=== PATIENT | male | born 1970 | race Native Hawaiian/Other Pacific Islander ===

== ENCOUNTER 2016-10-27 08:48 | Inpatient (IN) | payer BC ==
[~2016-10-27] VITALS: Ht 182.9 cm; Wt 83.9 kg
--- NOTE | 2016-10-27 08:56 | NUR ---
Dr Bangura at bedside for MSE.
[2016-10-27] MEDS ORDERED: ALLO100T56 PO (09:01)
[2016-10-27] MEDS ORDERED: LISI10TA5 PO (09:01)
[2016-10-27] MEDS ORDERED: OMEG1CAP PO (09:01)
[2016-10-27] MEDS ORDERED: ATOR10TA33 PO (09:01)
[2016-10-27] MEDS ORDERED: ASPI81TA31 PO (09:01)
[2016-10-27] MEDS: ASPIRIN 325 MG TABLET PO ONE ×2 (09:09→09:16)
[2016-10-27] MEDS ORDERED: NITROGLYCERIN OINT 1 GM PACKET TP ONE ×2 (09:15→09:18)
[2016-10-27] MEDS ORDERED: ASPIRIN 325 MG TABLET PO ONE (09:15)
[2016-10-27] MEDS ORDERED: ASPIRIN 81 MG TAB.CHEW ONE (09:18)
[2016-10-27] MEDS ORDERED: ASPIRIN 325 MG TABLET ONE (09:24)
[2016-10-27 09:30] LABS: BASOPHILS % (AUTO) 0.6 % (0.0-2.0); EOSINOPHILS # (AUTO) 0.3 K/uL (0.0-0.7); EOSINOPHILS % (AUTO) 4.2 % (0.0-7.0); HEMATOCRIT 42.4 % (36.7-47.1); HEMOGLOBIN 14.7 g/dL (12.5-16.3); LYMPHOCYTES # (AUTO) 2.8 K/uL (20.0-40.0); LYMPHOCYTES % (AUTO) 36.7 % (20.5-51.5); MEAN CORPUSCULAR HEMOGLOBIN 30.3 uug (23.8-33.4); MEAN CORPUSCULAR HGB CONC 35 g/dL (32.5-36.3); MEAN CORPUSCULAR VOLUME 87.3 fL (73.0-96.2); MONOCYTES # (AUTO) 0.5 K/uL (2.0-10.0); NEUTROPHILS # (AUTO) 4.1 K/uL (1.8-8.9); NEUTROPHILS % (AUTO) 52.5 % (38.5-71.5); PLATELET COUNT (AUTO) 221 K/uL (152-348); RED BLOOD CELL COUNT(AUTO) 4.86 MIL/uL (4.06-5.63); WHITE BLOOD COUNT (AUTO) 7.7 K/uL (3.6-10.2)
[2016-10-27 09:37] LABS: CALCIUM 9.6 mg/dL (8.5-10.1); CREATININE 1.1 mg/dL (0.6-1.3); POTASSIUM 4.2 mmol/L (3.5-5.1)
--- NOTE | 2016-10-27 09:41 | NUR ---
Patient is resting comfortably in bed with no s/s of distress noted.
[2016-10-27 09:43] LABS: ALBUMIN 4.2 g/dL (3.4-5.0); BILIRUBIN,TOTAL 0.5 mg/dL (0.2-1.0); TOTAL PROTEIN, SERUM 7.9 g/dL (6.4-8.2)
--- NOTE | 2016-10-27 10:30 | NUR ---
Pt trans to tele, NAD noted.
--- NOTE | 2016-10-27 10:52 | NUR ---
PT RECEIVED FROM ER VIA [facility] IN STABLE CONDITION.PT IS AXOX4 .ASSESSMENT DONE.V/S ARE STABLE.ORIENT THE PT TO ROOM AND SURROUNDINGS.PT SEEN BY DR TOVAR
[2016-10-27] MEDS ORDERED: HYDROCODONE/APAP 5-325MG TABLET PO PRN (11:00)
[2016-10-27] MEDS ORDERED: ONDANSETRON 4 MG/2 ML VIAL IV PRN (11:00)
[2016-10-27] MEDS ORDERED: ZOLPIDEM 5 MG TABLET PO PRN (11:00)
[2016-10-27] MEDS ORDERED: MORPHINE SULFATE 2 MG/1 ML DISP.SYRIN IV PRN (11:00)
[2016-10-27] MEDS ORDERED: ACETAMINOPHEN 325 MG TABLET PO PRN (11:00)
[2016-10-27] MEDS ORDERED: Z GUARD REMEDY PASTE 57 GM TUBE TOP PRN (11:00)
[2016-10-27] MEDS ORDERED: MAGNESIUM HYDROXIDE 30 ML LIQUID UDC PO PRN (11:00)
[2016-10-27 11:01] VITALS: BP 103/68
--- NOTE | 2016-10-27 12:00 | NUR ---
PT IS RESTING IN HIS ROOM .NO C/O PAIN NOTED AT THIS TIME.
[2016-10-27 15:49] VITALS: BP 99/53
[2016-10-27] MEDS ORDERED: OMEGA-3 FATTY ACIDS/FISH OIL CAPSULE PO SCH (17:00)
--- NOTE | 2016-10-27 18:04 | NUR ---
D/C ORDERS RECEIVED NOTED AND CARRIED OUT.D/C INSTRUCTIONS AND EDUCATIONS GIVEN TO THE PT.PT VERBALIZED UNDERSTANDING ALL THE INSTRUCTION.PT LEFT THE FACILITY VIA PRIVATE CAR IN STABLE CONDITION.
[2016-10-27] MEDS ORDERED: ATORVASTATIN 10 MG TABLET PO SCH (21:00)
[2016-10-28] MEDS ORDERED: PANTOPRAZOLE SODIUM 40 MG TABLET.DR PO SCH (07:00)
[2016-10-28] MEDS ORDERED: LISINOPRIL 10 MG TABLET PO SCH (09:00)
[2016-10-28] MEDS ORDERED: ALLOPURINOL 100 MG TABLET PO SCH (09:00)
[2016-10-28] MEDS ORDERED: ASPIRIN 81 MG TAB.CHEW PO SCH (09:00)
== END 2016-10-27 18:15 | disposition home or self-care (01) | DRG 303 ==
LOC: ER 08:48 → TELE 10:23
PROVIDERS: ADMIT Family Medicine; ATTEND Family Medicine
DX: I25.10 Atherosclerotic heart disease of native coronary artery without angina pectoris (principal); F17.210 Nicotine dependence, cigarettes, uncomplicated; E78.5 Hyperlipidemia, unspecified; I11.9 Hypertensive heart disease without heart failure; M10.9 Gout, unspecified; K80.20 Calculus of gallbladder without cholecystitis without obstruction
CPT/HCPCS: 36415; 70030-TC; 71010; 85025; 85610; 93005; 93307; A4663

== ENCOUNTER 2017-05-07 08:50 | Outpatient (CLI) | payer BC, OTHER ==
[~2017-05-07 08:50] MED LIST: ALLO100T56 PO; ASPI81TA31 PO; ATOR10TA33 PO; LISI10TA5 PO; OMEG1CAP PO
== END 2017-05-07 23:59 | disposition home or self-care (01) ==
LOC: US 08:50
PROVIDERS: ATTEND Family Medicine
DX: K80.81 Other cholelithiasis with obstruction (principal)
CPT/HCPCS: 76705

== ENCOUNTER 2017-08-24 09:41 | Outpatient (CLI) | payer BC, OTHER | END 2017-08-24 23:59 | disposition home or self-care (01) | LOC: US 09:41 | PROVIDERS: ATTEND Family Medicine | DX: I73.9 Peripheral vascular disease, unspecified (principal) ==